=== PATIENT | female | born 1990 | race Caucasian/White ===

== ENCOUNTER → 2020-07-16 15:38 | Outpatient (CLI) | payer MEDICAID, SELFPAY ==
[2020-07-16 17:22] LABS: Absolute Lymphocyte Count 1.94 X10^3/uL (0.83-4.51); Basophil# 0.05 X10^3/uL; Basophil% 0.4 % (0-1); Eosinophil# 0.09 X10^3/uL; Eosinophils% 0.8 % (0-5); Hematocrit 36.8 % (37-47); Hemoglobin 12.5 g/dL (12.0-15.0); Lymphocyte # 1.94 X10^3/ul (0.83-4.51); Lymphocyte % 16.4 % (19-41); Mean Corpuscular Hgb 29.6 pg (27.0-32.0); Mean Platelet Vol. 10.1 fl (6.2-12.0); Monocyte# 0.68 X10^3/uL; Monocyte% 5.7 % (0-10); NRBC Flagged by Analyzer 0 % (0-5); Neutrophil # 9.03 X10^3/uL (2.7-7.7); Neutrophil % 76.4 % (47-70); Platelet Count 302 K/mm3 (150-450); RBC Distribution Width CV 12.5 % (11.6-14.6); RBC Distribution Width SD 39.8 fl (35.1-43.9); Red Blood Count 4.23 M/mm3 (4.2-5.4); White Blood Count 11.8 K/mm3 (4.4-11.0)
[2020-07-16 17:37] LABS: Amphetamine Urine VISTA POSITIVE (<1000 ng/mL); Barbiturate Urine VISTA NEGATIVE (< 200 ng/mL); Benzodiazepine Urine VISTA NEGATIVE (< 200 ng/mL); Cocaine Urine VISTA NEGATIVE (< 300 ng/mL); Ecstacy Urine VISTA NEGATIVE (< 500 ng/mL); Methadone Urine VISTA NEGATIVE (< 300 ng/mL); PCP Urine VISTA NEGATIVE (< 25 ng/mL); THC Urine VISTA POSITIVE (< 50 ng/mL); Vista UDS pH Range 6
[2020-07-17 08:32] LABS: HIV - WCH Non-Reactive (Nonreactive); Hepatitis B Surface Antigen Non-Reactive (Nonreactive); Hepatitis C Antibody Non-Reactive (Nonreactive); Rubella IgG Reactive (Nonreactive); Syphilis Antibodies Non-reactive
[2020-07-19 16:26] LABS: HPV APTIMA, High Risk Negative (Negative)
[2020-07-20 03:06] LABS: Chlamydia By Nucleic Acid AMP Positive (Negative)
[2020-07-20 07:34] LABS: Gonococcus By Nucleic Acid AMP Negative (Negative)
== END ==
PROVIDERS: Visit Provider Student in an Organized Health Care Education/Training Program
DX: Z34.82 Encounter for supervision of other normal pregnancy, second trimester (principal); Z12.4 Encounter for screening for malignant neoplasm of cervix; Z11.3 Encounter for screening for infections with a predominantly sexual mode of transmission
CPT/HCPCS: 36415; 80307; 85025; 86703; 86762; 86780; 86803; 87086; 87088; 87340; 87491; 87591; 87624; 88175; G0145

== ENCOUNTER → 2020-08-30 13:31 | Outpatient (CLI) | payer MEDICAID, SELFPAY ==
[2020-08-30 15:21] LABS: Hematocrit 37.2 % (37-47); Hemoglobin 12.5 g/dL (12.0-15.0); Mean Corp Hgb Conc 33.6 g/dL (32-36); Mean Corpuscular Hgb 29.6 pg (27.0-32.0); Mean Corpuscular Volume 88.2 fL (81-99); Mean Platelet Vol. 9.9 fl (6.2-12.0); Platelet Count 270 K/mm3 (150-450); RBC Distribution Width CV 13.2 % (11.6-14.6); RBC Distribution Width SD 42.3 fl (35.1-43.9); Red Blood Count 4.22 M/mm3 (4.2-5.4); White Blood Count 13.4 K/mm3 (4.4-11.0)
[2020-08-30 16:06] LABS: Glucose Challenge Gest 1H 50g 57 mg/dL (70-140)
== END ==
PROVIDERS: Visit Provider Obstetrics & Gynecology
DX: Z34.82 Encounter for supervision of other normal pregnancy, second trimester (principal)
CPT/HCPCS: 36415; 82950; 85027

== ENCOUNTER → 2020-11-19 | Outpatient (CLI) | payer MEDICAID, SELFPAY | END | disposition home or self-care (01) | LOC: LABSPEC 14:28 | PROVIDERS: Visit Provider Student in an Organized Health Care Education/Training Program | DX: Z36.85 Encounter for antenatal screening for Streptococcus B (principal) | CPT/HCPCS: 87081 ==

== ENCOUNTER → 2020-12-03 | Outpatient (CLI) | payer MEDICAID, SELFPAY | END | disposition home or self-care (01) | LOC: LABSPEC 15:12 | PROVIDERS: Visit Provider Student in an Organized Health Care Education/Training Program | DX: Z03.818 Encounter for observation for suspected exposure to other biological agents ruled out (principal) | CPT/HCPCS: 87635; U0005; U0003 ==

== ENCOUNTER 2020-12-04 04:45 | Inpatient (IN) | payer MEDICAID, SELFPAY ==
[2020-12-04] VITALS (53 sets, daily range): BP systolic 94–187; BP diastolic 57–123; PULSE 59–139; RESP 16–18; TEMP 35.9–37.1; O2SAT 88–100; BMI 25.7
[2020-12-04] MEDS: Lactated Ringers 1,000 ML 50 ML IV (05:15)
[2020-12-04] MEDS: Lactated Ringers 500 ML 999 ML IV (05:20)
[2020-12-04] MEDS: Ondansetron 4 MG/2 ML Vial IV (05:32)
[2020-12-04] MEDS: 0.9% Saline Lock 10 ML Syringe IV ×2 (05:33→09:01)
[2020-12-04 05:39] LABS: Absolute Lymphocyte Count 3.57 X10^3/uL (0.83-4.51); Absolute Neutrophil Count 15.1 X10^3/uL (2.0-7.7); Basophil# 0.07 X10^3/uL; Basophil% 0.3 % (0-1); Eosinophil# 0.12 X10^3/uL; Eosinophils% 0.6 % (0-5); Hematocrit 42.1 % (37-47); Hemoglobin 14.4 g/dL (12.0-15.0); Lymphocyte # 3.57 X10^3/ul (0.83-4.51); Lymphocyte % 17.4 % (19-41); Mean Corp Hgb Conc 34.2 g/dL (32-36); Mean Corpuscular Hgb 28.2 pg (27.0-32.0); Mean Corpuscular Volume 82.5 fL (81-99); Mean Platelet Vol. 9.6 fl (6.2-12.0); Monocyte% 7.3 % (0-10); NRBC Flagged by Analyzer 0 % (0-5); Neutrophil # 15.07 X10^3/uL (2.7-7.7); Neutrophil % 73.7 % (47-70); Platelet Count 286 K/mm3 (150-450); RBC Distribution Width CV 13.4 % (11.6-14.6); RBC Distribution Width SD 39.9 fl (35.1-43.9); White Blood Count 20.5 K/mm3 (4.4-11.0)
--- NOTE | 2020-12-04 05:58 | HP.PCM.OB_ITS ---
HPI - General General Date of Admission: 12/04/20 HPI Narrative HEENA MOROCHO, is a 30 F at 39 6/7 wga who presents with painful contractions. OB PROBLEM LIST: positive amphetamines and THC on tox screen Desires tubal ligation , Needs to sign tubal papers Echogenic intracardiac focus and pyliectasis --> NIPT testing low risk, female Hx of kidney stones and lithotripsy. Also UTI hx. Late PNC Migraine headaches, she reports 1 per week Smokes 1/2 ppd Maternal Data Information KRISTOFER Calculator Estimated Delivery Date Method Current WG Current Estimate 12/11/20 Ultrasound #1 39w 0d Other Estimates 11/05/20 LMP (Uncertain) 44w 1d PFSH PFSH Medical History Kidney stone Positive urine drug screen (~07/2020) Home Medications [id number] [] tab PO DAILY 12/04/20 [History Last Taken 12/03/20] Allergy/AdvReac Type Severity Reaction Status Date / Time No Known Allergies Allergy Verified 12/04/20 05:14 Surgical History H/O lithotripsy Hx of tonsillectomy Social History Smoking Status: Current every day smoker History 3 Elective abortions Hx Para 2 Spontaneous abortions Hx # Term Pregnancies 2 Ectopic pregnancies Hx # Pregnancies Multiple births # of living children 2 Past Pregnancies Del. Date Name GA/Weeks Outcome Route Bth Weight Gen Labor Lgth Anesthesia Del Locatn Provider FOB Unknown Alienna 39 live - full term 8lb2oz Female 24 epi dural Unknown Diamond 39 6lb2oz Female 12 epidural Delivery Date: 11/2006 hypertension, hemorrhage Sobeida Dinero Delivery Date: 02/2013 NICU x 1 week Sobeida Dinero NST FHR Rate Baby A Baseline: 115 Variability:: Moderate Accelerations:: 15 x 15 Decelerations:: Variable NST Reactive:: Yes FHR Category:: Category II Uterine Activity:: 4/10 Vital Signs Vital Signs Vital Signs: Weight Weight: 63.957 kg Body Mass Index (BMI) 25.7 Physical Exam Const alert, oriented x3 and no apparent distress HEENT normocephalic Resp normal respiratory effort, normal air movement and clear to auscultation bilaterally Cardio regular rate and regular rhythm GI normal to inspection, nondistended, normoactive bowel sounds, soft to palpation, non-tender and non-distended Inspection: gravid Narrative: SVE 4.5/60/-3 per YUMI Gilliam Neuro deep tendon reflexes 2+ bilaterally Neuro Narrative: brisk reflexes Labs Labs Labs: Blood Type O POSITIVE Antibody Screen NEGATIVE Hct 42.1 % (37-47) Hgb 14.4 g/dL (12.0-15.0) Syphilis Total Ab Non-reactive Rubella IgG Antibody Reactive (Nonreactive) Hep Bs Antigen Non-Reactive (Nonreactive) Neisseria gonorrhoeae DNA (SHEKHAR) Negative (Negative) HIV 1&2 Antibody Non-Reactive (Nonreactive) Glucose 1 Hr 50 gm 57 mg/dL (70-140) L 07/16/20 Chlamydia - positive 07/16/20 HCV Ab - non reactive Antepartum Flow Sheet Highlights: CM 19 Nov 6 38 141 130/74 39 V 3 60 -1 CM 12 Nov 15 37 138 118/66 - - 37 V 3 60 -2 CM 05 Nov 15 36 138 112/72 - - 36 V 1 60 -3 JM 28 Sep 1 35 132 102/86 - - 35 V JM 14 Sep 2 33 135 104/68 tr + 33 V Sep 16 31 134 118/70 tr ne 32 V Sep 16 31 134 118/70 tr ne 32 V Sep 16 29 129 106/70 tr - 29 V 16 Aug 18 127 104/68 tr 1+ 25 - CM Jul 19 25 122 114/70 tr ne 20 SHORT ANTEPARTUM NOTE(S): Nov 26 Nov 19 Dec 12 Sep feeling well. Wants to discuss tubal. AM Oct Artie Grissom continues, pelvic pressure. AM Oct 15 Sep 27Sep artie grissom 16 Aug Sono Today,Good FM Jul genetic packet, glucola given LONG ANTEPARTUM NOTES: Nov 38/6w Plan for term induction of labor 12/09 pitocin/arom. Membranes stripped. F/u PP. cm Nov Still vomiting 1-2 x in the mornings, once in the evening after eating spaghetti. Still having contractions, but irreguar and < than 6/hr. Good FM. Denies leaking fluid. Denies spotting. She did get pre-registered. Pitocin Induction scheduled for 12/09/20 @ 7 AM. Consent signed. Induction literature given. Paperwork faxed to OB. COVID test done here in the office. kbm Nov Good FM. She has been having runs of ctx's, but states < 6/hr. Denies spotting. Denies leaking fluid. Ph # given to pre-register @ [facility]. kb Nov 37.6w GBS neg. Feeling nauseous in the morning, emesis x1-2 over the past couple days. Denies PISANO, vision changes, chest pain/dyspnea, RUQ pain. Signs/sym ptoms of pr-e reviewed. Declined anti-emetic. F/u 1w. CM Nov H&P taken to OB. tkg Nov Good FM. Declines LARC-- Mirena or Norplant, wants a TUBAL. GBS done today. [facility] Nov 36/6w. Hx of drug use, growth AGA. Desires PPTL, declines larc. GBS done. F/u 1w. CM Oct 35 weeks, ultrasound today for growth with history of drug abuse, AGA vertex. Desires tubal ligation , will sign tubal consent at visit and schedule for tubal at visit. GBS next visit. 14 Oct 33 weeks, with history of drug use will repeat growth ultrasound next visit. GBS next visit. Sep Heena is here for PNV. States she thinks she has as yeast infection again. Having c/o itching and burning. Having good FM. No ctx reported. No edema noted. Urine tr/neg. LSS Sep 30wk, no complaints. Denies drug use. Consider growth u/s at 36wks for hx of drug use, last growth AGA. Sep Heena is here for a PNV/ US at 29 wks. Good FM. No edema present. Reports episode of severe back pain and mild cramping in lower abdomen that took place last Wednesday. States it was a one time occurrence. Occasional artie grissom. No other concerns expressed. MK Sep 29 weeks, repeat ultrasound today for renal pelviectasis. Now within normal limits. Growth AGA. Will consider repeating ultrasound around 36 weeks with history of drug use. CASTRO Aug 25 weeks, 1 hour GTT today. Growth ultrasound today within normal limits. Cardiac foci and renal pelviectasis miffed within normal limits, female. Reviewed with patient. Today minimal renal pelviectasis 4 to 5 mm. We will repeat ultrasound at next visit. Discussed results with patient. CASTRO Jul NOB TELEHEALTH VISIT, 40 MINUTE DURATION. Heena is a 30 year old with an KRISTOFER of , current GA is 20 w 0 d. She was originally scheduled for an in-person NOB visit, but she missed this appointment; when receptionist telephone operator called her she stated that she could do a telehealth visit. Heena resides with her two daughters, ages 7 and 13, from a previous relationship. Past history updated. She reports that the father of this baby's involvement is currently questionable. Heena reports that he has two other children. Delivery at [facility] is planned, she states that she would like to see if she can labor without an epidural, but she is not opposed to having one. Office practice patterns reviewed, and she was given a copy of What to Expect..., and office ed materials. Emergencies/danger signs, how to contact the office during/after hours, round ligament pain, reporting a suspected UTI, and common OTC medications for minor ailments that are approved/not approved for use during reviewed. Heena states that she had been taking Excedrin Migraine for migraine headaches, advised Tylenol only. She will call if her migraines continue. She states a long history of migraine headaches. She also reports a history of UTI's and kidney stones, and she had Lithotripsy at age 17. Heena takes an OTC vitamin that contains DHA, and that she tolerates this well. She reports that she has been feeling well, and is feeling some FM. She states that she continues to smoke, an has decreased to less than 1/2 ppd; ATQ, and discussed risks of smoking to self/fetus/baby. She reports that she continues to smoke marijuana, advised to stop.; Heena states that she discussed this with the doctor at her PNV yesterday. She denies use of other illicit drugs, and denies use of ETOH. NIPT drawn yesterday, and she declines carrier screening. She states that she filled out her Depression Screening yesterday, along with her EPDS. She reports that she is trying to find more information on FOB's family history, and will advise office staff of she has anything to add. Heena denies a history of depression or anxiety, or ever receiving any treatment for same. Encouraged regular physical activity, such as walking, for 30 minutes, 5 x/week. She states that she has been sedentary. Heena states that she eats a pretty good diet, and works to drink plenty of water. Reviewed water/dietary/caloric needs, including recommended weight gain, limiting empty calories, limiting caffeine to one cup a day, and food safety. Lifting restrictions for discussed. Heena states that she understands all information provided during NOB visit, and that she has no questions following same. AW Jul Heena is here for PNV following US. States she is feeling well and having good FM. Glucola and instructions given for next visit. Instucted to do prior to 28 week sushil. Voiced understanding. Genetic packet given today also. Urine tr/neg. LSS Jul Materni T drawn today. Aug 03w, KRISTOFER FINAL 12/11/20 by 03/08w US. Hx of Drug use - utox pos amphetamines & marijuana at last visit. Late PNC. Anatomy US today showed pyliectasis and left ventricular intracardiac echogenic focus. Discussed soft markers of Tri21. Would like NIPT testing today. Drawn. Plan for 28w growth. F/u 4w. CM Jul Heena is a 30 yr old Gr3 P2 here with a girlfriend for Missed Menses. She unsure of LMP. Reports having 2 bleeds in January and maybe 1 the first week in Feb, but she is not sure. States prior to Jan, she was having monthly periods. Positive home test on 04/06/20. Reports feeling FM for several weeks. This is with a new FOB; she is unsure if he will be involved. States she is taking a PNV. Hx x 2 prior. She has a 13 yr old and a 7 yrs old -- both daughters. At one point reported no problems with these 2 pregnancies, then later stated had PP hemorrhage after the 1st. Difficult to get information from her as she was a poor historian and hesitated w/answers to every question. Med Hx she was given was blank except for stating she was and smoked. Hx Kidney Stones, subsequent Lithotripsy. Smokes 1 PPD cigarettes and marijuana. To discuss further w/Dr. Clinton Reports last pap > 5 yrs ago. Denies Hx abnormals. Denies Hx STD's. informational materials given. Advised no use of NSAIDS. kbm Assessment & Plan (1) : QUALIFIERS: Weeks of gestation: 39 weeks Qualified Code(s): Z3A.39 - 39 weeks gestation of PLAN: Admit in labor Epidural per patient request Preeclampsia labs sent given elevated BPs, pt asymptomatic Repeat GC/CT ordered Covid testing neg (2) Positive urine drug screen: PLAN: Repeat utox positive Case management consultationy
[2020-12-04] MEDS: fentaNYL-bupivacaine (epidural) 100 ML BAG EPIDURAL (06:26)
[2020-12-04 06:31] LABS: Amphetamine Urine VISTA NEGATIVE (<1000 ng/mL); Barbiturate Urine VISTA NEGATIVE (< 200 ng/mL); Benzodiazepine Urine VISTA NEGATIVE (< 200 ng/mL); Cocaine Urine VISTA NEGATIVE (< 300 ng/mL); Ecstacy Urine VISTA NEGATIVE (< 500 ng/mL); Methadone Urine VISTA NEGATIVE (< 300 ng/mL); PCP Urine VISTA NEGATIVE (< 25 ng/mL); THC Urine VISTA POSITIVE (< 50 ng/mL); Vista UDS pH Range 6
[2020-12-04] MEDS: Oxytocin 30 units/NS 500 ml 30 UNITS/500 ML IV.SOLN 334 UNITS IV (06:37)
[2020-12-04 06:52] LABS: Protein, Urine (Random) 23.7 mg/dL (<11.9); Protein:Creat Ratio 311 mg/g CRE (0-200)
[2020-12-04 06:55] LABS: ALB/GLOB Ratio 0.5 RATIO (0.9-2.4); AST(SGOT) 10 U/L (15-37); Alanine Aminotransfer ALT/SGPT 15 U/L (13-56); Albumin, Serum 2.4 g/dL (3.2-5.0); Alkaline Phosphatase 233 U/L (45-117); Anion Gap 11 (5-15); BUN 11 mg/dL (7-18); BUN/Creat Ratio 21.9 RATIO (10-20); Calcium,Total 8.3 mg/dL (8.5-10.1); Chloride 105 mmol/L (98-107); EST Glomerular Filtration Rate 153 mL/min (>60); Est Glom Filt Rate - Afr Amer 185 mL/min (>60); Estimated Creatinine Clearance 130.12 ml/min; Globulin 4.4 g/dL (2.2-4.2); Glucose 93 mg/dL (74-106); LDH 209 U/L (84-246); Potassium 3.9 mmol/L (3.5-5.1); Protein, Total 6.8 g/dL (6.4-8.2); Sodium Level 136 mmol/L (136-145); Uric Acid 3.3 mg/dL (2.6-6.0)
--- NOTE | 2020-12-04 07:53 | EX.PCM.OBRPT ---
Assessment & Plan (1) (spontaneous vaginal delivery): Maternal Data Information KRISTOFER Calculator Estimated Delivery Date Method Current WG Current Estimate 12/11/20 Ultrasound #1 39w 0d Other Estimates 11/05/20 LMP (Uncertain) 44w 1d Vaginal Delivery Maternal Presentation Maternal Presentation: Active Labor Operative Information Date of Procedure: 12/04/20 Pre-Operative Diagnosis: 1. 39 weeks gestation Post-Operative Diagnosis: 1. 39 weeks gestation Surgery / Procedure Performed: Spontaneous Vaginal Delivery Type of Anesthesia: Epidural Anesthesiologist: Kaylyn Recinos Estimated Blood Loss: 250 ml Findings Description of Procedure: Patient pushed to deliver a [female] . mouth and nares were bulb suctioned. The was placed on the maternal abdomen and further attended by nursery personnel. The cord was doubly clamped and cut at approximately 3 minutes of life. The placenta delivered spontaneously and appeared intact on inspection. Sponge and needle counts were correct x2. Presentation: Vertex Amniotic Membrane Rupture Type: Spontaneous Amniotic Fluid Description: Clear Placental Delivery Description: Spontaneous Placenta Disposition: [facility] Cord Vessel Description: 3 Vessels Cord Entanglement: - (around leg) Nuchal Cord Compression: Without compression A Gender: Female (1 minute): 7 (5 minute): 9 Delayed Cord Clamping: Yes Post Vaginal Delivery Medications Given After Delivery: IV Pitocin Episiotomy Description: None Laceration: None Complication Complications: None
--- NOTE | 2020-12-04 08:20 | NURSING ---
Patient reports to this RN that she smoked weed throughout . Also reports using Vicodin throughout . Reports yesterday as most recent use. Denies fentanyl or heroin use, but states that anything could be in pills. Patient reports that she used Hamida and Meth during the first trimester when she didn't know she was .
[2020-12-04] MEDS: Ibuprofen 600 MG Tablet PO ×3 (08:25→22:28)
[2020-12-04 09:56] LABS: Chlamydia Trachomatis by PCR Negative (Negative); Probe Check PASS
[2020-12-04 09:58] LABS: Neisserai gonorrhoeae by PCR Positive (Negative)
--- NOTE | 2020-12-04 11:03 | NURSING ---
Per Dr. Coats, tubal will not be done inpatient. Patient can discuss the possibility of surgery with provider at 6 weeks .
[2020-12-04] MEDS: Doxycycline 100 MG CAPSULE PO ×2 (12:05→22:27)
[2020-12-04] MEDS: Ceftriaxone 500 MG Vial 250 MG IM (12:06)
[2020-12-04 13:07] LABS: Syphilis Antibodies Non-reactive
--- NOTE | 2020-12-04 13:13 | NURSING ---
Epidural catheter removed. Blue tip intact.
[2020-12-04 13:38] LABS: HIV - WCH Non-Reactive (Nonreactive); Hepatitis B Surface Antigen Non-Reactive (Nonreactive); Hepatitis C Antibody Non-Reactive (Nonreactive)
[2020-12-04] MEDS: Acetaminophen 500 MG Tablet 1000 MG PO ×2 (16:03→22:27)
[2020-12-05 03:40] VITALS: BP 114/93; PULSE 73; RESP 16; TEMP 36.8; O2SAT 98
[2020-12-05] MEDS: Acetaminophen 500 MG Tablet 1000 MG PO ×2 (04:27→17:09)
[2020-12-05] MEDS: Ibuprofen 600 MG Tablet PO ×2 (04:28→11:07)
[2020-12-05 07:30] VITALS: BP 106/67; PULSE 77; RESP 14; TEMP 36.6; O2SAT 97
--- NOTE | 2020-12-05 08:31 | PCM.PN.OB ---
Subjective Subjective No overnight complaints. Pain well controlled. Objective Data Objective Data Vital Signs: Vital Signs Temp Pulse Resp BP Pulse Ox 97.8 F 77 14 106/67 97 12/05/20 07:30 12/05/20 07:30 12/05/20 07:30 12/05/20 07:30 12/05/20 07:30 Oxygen Delivery Method Room Air Weight: 141 lb Body Mass Index (BMI) 25.7 Intake & Output: Intake and Output for Last 24 Hours 12/03/20 12/04/20 12/05/20 23:59 23:59 23:59 Intake Total 1140.84 / 1140.84 Output Total 300 / 300 Balance 840.84 / 840.84 Lab / Micro Data Result Diagrams: 12/04/20 05:35 12/04/20 05:45 Labs: Laboratory Results - last 24 hr 12/04/20 05:15: Chlam trachomat DNA PCR Negative, N.gonorrhoeae DNA (PCR) Positive H 12/04/20 11:50: Syphilis Total Ab Non-reactive 12/04/20 11:50: Hep Bs Antigen Non-Reactive, Hepatitis C Antibody Non-Reactive, HIV 1&2 Antibody Non-Reactive Physical Exam Const alert, oriented x3, no apparent distress, average body habitus, healthy appearing and well nourished HEENT normocephalic and moist oral mucous membranes Head and Scalp: atraumatic Face and Sinus: normal facial exam Eyes PERRL Neck full ROM Resp normal respiratory effort, no retractions and no use of accessory muscles Extremity normal to inspection, full ROM and no clubbing, cyanosis or edema Psych mental status grossly normal, affect normal, speech normal and activity/motor behavior normal Assessment & Plan (1) (spontaneous vaginal delivery): PLAN: day 1. Formula feeding. Baby being watched for mother with opioid use for 5 days. Likely hotel status tomorrow
[2020-12-05] MEDS: Doxycycline 100 MG CAPSULE PO ×2 (11:07→22:14)
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
[2020-12-05 13:51] VITALS: BP 103/67; PULSE 65; RESP 14; TEMP 37.3; O2SAT 99
--- NOTE | 2020-12-05 16:30 | CASEMGMT ---
Social Work Labor and Delivery Referral to [facility] ([facility]) and spoke with Miriam Bruce in the intake department. Referral due to substance exposed in utero. Reported positive drugs screens for both mom and baby. Brief maternal and histories provided. Referral will be screened in for investigation. Anticipate [facility] to make contact with mother of baby on 12.06.2020. Plan: Social work to follow and assist as needed. Will follow up with MOB on 12.06.2020 for provision of some resources for home going. Will collaborate with children services as indicated. Monitor for meconium drug screen results. -Karrie Rivero, SHERRILL-S, PROFESSOR OF PHYSICAL EDUCATION
[2020-12-05 20:35] VITALS: BP 99/75; PULSE 65; RESP 18; TEMP 36.7; O2SAT 99
[2020-12-06 01:17] VITALS: BP 119/74; PULSE 70; RESP 16; TEMP 36.6; O2SAT 97
--- NOTE | 2020-12-06 08:26 | PCM.DC.BLA ---
Discharge Summary Date of Admission: 12/04/20 Date of Discharge: 12/06/20 Summary: Patient arrived on 12/04/2020 in labor. Spontaneous vaginal delivery. Patient with recent opioid use, AB to be watched by pediatricians for 5 days total. Patient discharge to [facility] status on 12/06/2020 Physical Exam Const alert, oriented x3, no apparent distress, average body habitus, no limitations and healthy appearing HEENT normocephalic Neck full ROM Lymph Lymphatic: no lymphadenopathy noted Resp normal respiratory effort, normal air movement, no retractions and no use of accessory muscles Extremity normal to inspection and full ROM Psych mental status grossly normal, thought process normal, cooperative, affect normal and speech normal Meaningful Use Info Meaningful Use Diagnoses (Choose all that apply): None applicable Discharge Plan Admission Admit Date/Time: 12/04/20 04:45 Primary Reason for Your Visit: labor Attending Provider: Sobeida Freeman Discharge Orders/Prescriptions Prescriptions: No Action 1 mg Tablet PO DAILY RF: 0 Disposition Disposition (needs filled in before D/C Order can be placed): Home, Self Care
--- NOTE | 2020-12-06 08:28 | PCM.PN.OB ---
Subjective Subjective No overnight complaints. Pain well controlled. Objective Data Objective Data Vital Signs: Vital Signs Temp Pulse Resp BP Pulse Ox 97.8 F 70 16 119/74 97 12/06/20 01:17 12/06/20 01:17 12/06/20 01:17 12/06/20 01:17 12/06/20 01:17 Oxygen Delivery Method Room Air Weight: 141 lb Body Mass Index (BMI) 25.7 Intake & Output: Intake and Output for Last 24 Hours 12/04/20 12/05/20 12/06/20 23:59 23:59 23:59 Intake Total 1140.84 / 1140.84 Output Total 300 / 300 Balance 840.84 / 840.84 Lab / Micro Data Result Diagrams: 12/04/20 05:35 12/04/20 05:45 Physical Exam Const alert, oriented x3, no apparent distress, average body habitus, healthy appearing and well nourished HEENT normocephalic and moist oral mucous membranes Head and Scalp: atraumatic Face and Sinus: normal facial exam Eyes PERRL Neck full ROM Resp normal respiratory effort, no retractions and no use of accessory muscles Extremity normal to inspection, full ROM and no clubbing, cyanosis or edema Psych mental status grossly normal, affect normal, speech normal and activity/motor behavior normal Assessment & Plan (1) (spontaneous vaginal delivery): PLAN: day 2. Formula feeding. Opioid use, [facility] with baby being watched by milk drying machine operator for opioid withdrawal for 5 days
[2020-12-06 08:30] VITALS: BP 128/77; PULSE 67; RESP 16; TEMP 36.7
[2020-12-06] MEDS: Acetaminophen 500 MG Tablet 1000 MG PO ×2 (09:12→15:27)
[2020-12-06] MEDS: Azithromycin 250 MG Tablet 1000 MG PO (13:01)
[2020-12-06] MEDS: Ceftriaxone 500 MG Vial 250 MG IM (13:01)
[2020-12-06 14:09] VITALS: BP 126/74; PULSE 70; RESP 16; TEMP 36.8
--- NOTE | 2020-12-17 15:12 | CASEMGMT ---
Social Work Labor and Delivery Infant's meconium drug screen is back and positive for marijuana. Called transfer and line up worker, Jaime Morris ([phone], extension [phone], at [facility] and left message. No other services requested or indicated. [facility] is following this family in the community from of delivery admission. -MK Dale, BIAS CUTTER HELPER
== END 2020-12-06 15:28 | disposition home or self-care (01) | DRG 560 ==
PROVIDERS: Obstetrics & Gynecology; Admitting Provider Obstetrics & Gynecology; Referring Provider Obstetrics & Gynecology; Visit Provider Obstetrics & Gynecology
DX: O76 Abnormality in fetal heart rate and rhythm complicating labor and delivery (principal); O16.4 Unspecified maternal hypertension, complicating childbirth; O42.92 Full-term premature rupture of membranes, unspecified as to length of time between rupture and onset of labor; O69.82X0 Labor and delivery complicated by other cord entanglement, without compression, not applicable or unspecified; O99.324 Drug use complicating childbirth; Z37.0 Single live birth; F15.90 Other stimulant use, unspecified, uncomplicated; F11.90 Opioid use, unspecified, uncomplicated; F12.90 Cannabis use, unspecified, uncomplicated; O99.334 Smoking (tobacco) complicating childbirth; F17.210 Nicotine dependence, cigarettes, uncomplicated; Z3A.39 39 weeks gestation of pregnancy; Z03.818 Encounter for observation for suspected exposure to other biological agents ruled out; Z87.59 Personal history of other complications of pregnancy, childbirth and the puerperium
CPT/HCPCS: 59025; 59050; 80053; 80307; 82570; 83615; 84156; 84550; 85025; 86703; 86780; 86803; 86850; 86900; 86901; 87340; 87491; 87591; 87635; 99218; J7120; U0005; A4216; G0378; J2405; U0003

== ENCOUNTER → 2021-01-13 | Outpatient (CLI) | payer MEDICAID, SELFPAY ==
[2021-01-15 21:07] LABS: Chlamydia By Nucleic Acid AMP Negative (Negative)
[2021-01-16 14:17] LABS: Gonococcus By Nucleic Acid AMP Negative (Negative)
== END | disposition home or self-care (01) ==
LOC: LABSPEC 15:47
PROVIDERS: Visit Provider Student in an Organized Health Care Education/Training Program
DX: Z11.3 Encounter for screening for infections with a predominantly sexual mode of transmission (principal)
CPT/HCPCS: 87491; 87591

== ENCOUNTER 2021-02-18 11:57 | Outpatient (CLI) | payer MEDICAID, SELFPAY | END 2021-02-18 23:59 | disposition short-term general hospital (02) | LOC: LABSPEC 12:02 | PROVIDERS: Visit Provider Student in an Organized Health Care Education/Training Program | DX: Z20.822 Contact with and (suspected) exposure to COVID-19 (principal) | CPT/HCPCS: 87635; U0003; U0005 ==

== ENCOUNTER 2021-02-20 06:00 | Day surgery (SDC) | payer MEDICAID, SELFPAY ==
[2021-02-19 17:08] LABS: Hematocrit 40.2 % (37-47); Hemoglobin 12.9 g/dL (12.0-15.0); Mean Corp Hgb Conc 32.1 g/dL (32-36); Mean Corpuscular Volume 84.3 fL (81-99); Mean Platelet Vol. 10.2 fl (6.2-12.0); Platelet Count 332 K/mm3 (150-450); RBC Distribution Width CV 13.3 % (11.6-14.6); RBC Distribution Width SD 41.4 fl (35.1-43.9); Red Blood Count 4.77 M/mm3 (4.2-5.4)
[2021-02-20 06:45] VITALS: BP 129/90; PULSE 75; RESP 16; TEMP 36.6; O2SAT 100; BMI 23.8
[2021-02-20 06:48] LABS: Internal QC Validated? YES +Cl - CLEAR BKGD; Pregnancy, Urine Negative Negative
[2021-02-20] MEDS: Lactated Ringers 1,000 ML 125 ML IV (06:48)
--- NOTE | 2021-02-20 07:10 | HP.PCM.OB_ITS ---
History and Physical Date of Admission: 02/20/21 HISTORY OF PRESENT ILLNESS: On 02/18/2021, Heena Singh, a 30 year old female 3 0 0 0 3, presented for bilateral salpingectomy for desired tubal sterilization. MEDICAL HISTORY: Denies ALLERGIES: No Known Allergies MEDICATIONS HISTORY: None SURGICAL HISTORY: 1. Lithotripsy age 17 2. T and A, age 13 MENSTRUAL HISTORY: LMP Known?- Definite Amount/Duration - 6 days, Regularity - Regular, LMP - 01/03/21, Age Onset Menarche - 14 PAST PREGNANCIES: Total Pregnancies - 3; Full Term Pregnancies - 3; Premature - 0; Abortions, Induced - 0; Abortions, Spontaneous - 0; Ectopics - 0; Multiple Births - 0; Living Children - 3 FAMILY HISTORY: Denies. No history of issues with anesthesia SOCIAL HISTORY: Alcohol Use - denies drinking Smoking - 1/2 pack/day--advised to quit Drug Use - Denies current drug use. on probation with routine drug testing REVIEW OF SYSTEMS: GENERAL - Denies fever, or chills SKIN - Denies skin changes EYES - Denies visual changes EARS - Denies difficulty hearing NOSE - Denies nasal congestion or bleeding MOUTH - Denies sore throat or difficulty swallowing NECK - Denies pain or swelling RESPIRATORY - Denies shortness of breath or wheezing CARDIOVASCULAR - Denies palpitations or chest pain GASTROINTESTINAL - Denies nausea, vomiting, diarrhea, constipation GENITOURINARY - Kidney stone issues, lithotripsy MUSCULOSKELETAL - Denies joint or muscle pain NEUROLOGICAL - Denies localized numbness or weakness PSYCHIATRIC - Denies depression or anxiety ENDOCRINE - Denies heat or cold intolerance, weight loss or gain HEMATO-IMMUNOLOGIC - Denies excessive bleeding with cuts BP- 108/62 Sitting, Right arm, regular cuff Weight- 127.0 lbs Height- 62.75 inch BMI:22.67 CONSTITUTIONAL - NAD, well nourished, and well developed SKIN - No rash, lesions, or ulcers HEENT - Normocephalic, PERRLA, EOMI NECK - No nodes, no nuchal rigidity and thyroid normal size and texture LYMPH NODES - Palpation of lymph nodes in neck and groins within normal limits LUNGS - CTA x2 without wheezes, crackles or rales CARDIAC - Regular rate and rhythm without rubs, murmurs, or gallops ABDOMEN - Without hepatosplenomegaly, distention, masses, rebound, or guarding; normal bowel sounds; no hernias EXTREMITIES - No edema or calf tenderness NEUROLOGICAL - Cranial nerves II-XII grossly intact PSYCHIATRIC - A and O to time, place, person, mood and affect ASSESSMENT/PLAN: Desires permanent sterilization. Patient is confident she has comple anna childbearing. R/B/A discussed. Pt aware of risks of surgery,risks of regret, VTE, bleeding to the point of transfusion, injury to surrounding tissue (bowel/bladder/large vessel), ICU admission.
--- NOTE | 2021-02-20 07:13 | PCM.OPRPT ---
Report of Operation Date of Procedure: 02/20/21 Pre-Operative Diagnosis: Desires Permanent Sterilization Post-Operative Diagnosis: Desires Permanent Sterilization Surgery/Procedure Performed:: Laparoscopic Bilateral Salpingectomy Description of Surgical Findings:: Carbuncle left mons. Normal external genitalia otherwise. Minimal uterine descensus. Normal-appearing ovaries, uterus. Paratubal cysts noted on fallopian tubes. No evidence of adhesions or Andrea-Rishabh Gavino. Type of Anesthesia: General Specimen's removed: Bilateral fallopian tubes Estimated Blood Loss (mL): 10 cc Fluids Replaced: 600 cc Description of Procedure: Indications/risk/benefits: 30-year-old female who desires permanent sterilization. Plan for bilateral laparoscopic salpingectomy. Risk, benefits, alternatives were discussed with the patient. Risks include but are not limited to: Risk of regret, risk of injury to surrounding tissue including bowel/bladder/major abdominal vessels, VTE, ICU admission, infection. Patient aware if she were to become to notify provider immediately due to risk of ectopic , however low due to bilateral salpingectomy. Procedure: Patient taken to the operating room and placed under general anesthesia. Patient placed in the dorsal lithotomy position and prepped and draped in the usual sterile fashion. Left mons carbuncle noted cleaned with prep and covered with separate draping, located far away from surgical site. Geronimo catheter placed. Weighted speculum placed in the posterior vagina, Orellana retractor used to visualize the cervix. Anterior lip of the cervix grasped with ring forceps. Cervix gradually dilated. Sargis manipulator placed. Gloves changed and attention turned to the anterior abdominal wall. 5 mm infraumbilical incision made with scalpel and trocar placed under direct visualization. Abdomen inspected with findings above. Left lower quadrant incision made with scalpel and trocar placed under direct visualization, 5 mm. 8 mm trocar placed under direct visualization in the right lower quadrant. Left fallopian tube grasped and removed using the LigaSure device with coagulation and cut. Tube removed through trocar. Right fallopian tube grasped at the distal end and removed using LigaSure in a similar manner. Tube removed through trocar. Mesosalpinx hemostatic. Insufflation stopped, trochars removed. Skin closed with subcuticular stitch and skin glue. Started manipulator removed. Cervix hemostatic. At the end of the procedure all needle, lap, sponge counts were correct. Urine output: 50 cc Complications None
--- NOTE | 2021-02-20 07:14 | PCM.DC ---
Discharge Instructions Diet Discharge Diet: No restrictions Activity Discharge Activity: Return to Normal Activity and May Shower May resume sexual activity in: 1-2 weeks Weight Bearing Status: Weight bearing as tolerated Lifting Restrictions: No greater than 25 pounds Dressing / Incision Call your doctor if your incision/area has: Continuous Slow Oozing, Increased Redness, Foul Smelling Discharge and Swelling at the incision site Call your doctor if you observe: Fever of 101 or Higher, Change in Color, Inability to urinate, Using more than 1 pad per hour, Shortness of breath, Dizziness, Swelling in the ankles, Chest pain and Calf discomfort Cleanse incision/area with: Soap & Water Follow Up Care Please Follow Up With: Elin Maxwell DO When: 2-week post operative visit Test Results: Test results from this visit will be discussed in further detail at your follow-up appointment, if applicable. Discharge Plan Admission Primary Reason for Your Visit: Bilateral salpingectomy Attending Provider: Elin Maxwell Primary Care Provider: Care Physician,Cheyanne Primary Discharge Orders/Prescriptions Prescriptions: New oxycodone 5 mg tablet 5 mg PO Q6H PRN (Reason: pain (scale score 7-10)) 1 Days Qty: 4 RF: 0 sulfamethoxazole-trimethoprim [Bactrim DS] 800-160 mg tablet 1 tab PO BID Qty: 10 RF: 0 Referrals / Follow Up: Care Physician,No Primary [Primary Care Provider] - Disposition Disposition (needs filled in before D/C Order can be placed): Home, Self Care
--- NOTE | 2021-02-20 07:30 | FALS_PTH ---
PATIENT: DEJAN MOROCHO [place] [facility] [id number] AGE/SX: 30/F ROOM: RE02/20/[address]: Dr. Elin Maxwell, : 1990 BED: DIS: 02/20/2021 SPEC #: [id number] RECD: 02/20/21 10:08 STATUS: FARIBA RECordelia #: [id number] GENA: 02/20/21 07:[address]: Elin Maxwell DEPT: SURGICAL PATHOLOGY RECD BY: Liz Zaidi ENTERED: 02/20/21 13:31 SP TYPE: FALL TUBES OTHR DR: No Primary Care Phys Tissues: Fallopian tube Procedures: Surgery Specimen Level II HEADER OPERATION: Laparoscopic salpingectomy PRE-OP DIAGNOSIS: Elective sterilization TISSUE SUBMITTED: Bilateral fallopian tubes MICROSCOPIC DIAGNOSIS Bilateral fallopian tubes, salpingectomy: Bilateral fallopian tubes, no pathologic diagnosis. BREANA:eve 02/21/2021 MICROSCOPIC DESCRIPTION Slides are reviewed. GROSS DESCRIPTION Received in fixative is one container labeled with the patient's name and designated bilateral fallopian tubes. The specimen consists of two fallopian tubes with an average length of 5.5 cm and has an average diameter of 0.6 cm. Both fallopian tubes have normal fimbriated ends. No mass lesions are identified. Computer Publisher sections are submitted in two cassettes as follows: 1 - one fallopian tube, 2??the other fallopian tube. / AM:eve 02/20/21 TC:4 CPT: 05617 x2
[2021-02-20 08:16] VITALS: BP 124/83; BP 129/90; PULSE 82; RESP 20; TEMP 36.1; O2SAT 97
[2021-02-20 08:30] VITALS: BP 124/82; BP 129/90; PULSE 100; RESP 20; O2SAT 98
[2021-02-20 08:35] VITALS: BP 123/76; BP 129/90; PULSE 96; RESP 20; TEMP 35.8; O2SAT 98
--- NOTE | 2021-02-20 08:44 | SUR.PHASEI ---
PATIENT ORIENTED X3, BUT IS STILL VERY TEARFUL ASKING FOR HER MOMMY. SHE IS STABLE SO I AM GOING TO TAKE HER BACK TO HER ROOM.
[2021-02-20 09:25] VITALS: BP 126/83; BP 129/90; PULSE 70; RESP 16; TEMP 36.1; O2SAT 100
== END 2021-02-20 23:59 | disposition home or self-care (01) ==
LOC: SDC 06:01 → AC 06:03
PROVIDERS: Anesthesiology; Referring Provider Student in an Organized Health Care Education/Training Program; Visit Provider Student in an Organized Health Care Education/Training Program
PROC: (CPT 58661; principal; 2021-02-20 07:15)
DX: Z30.2 Encounter for sterilization (principal); N83.8 Other noninflammatory disorders of ovary, fallopian tube and broad ligament; F17.200 Nicotine dependence, unspecified, uncomplicated
CPT/HCPCS: 58661; 00840; 36415; 81025; 85027; 86850; 86900; 86901; 88302; J7120; J2405

== ENCOUNTER 2021-08-01 16:31 | Emergency (ER) | payer MEDICAID, SELFPAY ==
[2021-08-01 16:33] VITALS: BP 101/67; PULSE 87; RESP 16; TEMP 36.9; O2SAT 100; BMI 21.9
[2021-08-01 16:48] LABS: Mucous, Urine 0 SEEN /hpf (<or=2+)
[2021-08-01 16:51] LABS: Glucose, Dipstick Normal (Normal); Ketone-Dipstick Negative (Negative); Leukocyte Esterase-Dipstick 500 /ul (Negative); Nitrite-Dipstick Negative (Negative); Occult Blood-Urine 150 /ul (Negative); Protein-Dipstick 100 mg/dl (Negative); Urine Bilirubin Dipstick Negative (Negative); Urine Urobilinogen Normal (Normal)
[2021-08-01 17:28] LABS: Red Blood Cells-Urine 5-10 SEEN /hpf (0-5); White Blood Cells 25-50 SEEN /hpf (0-5)
[2021-08-01 17:29] LABS: Bacteria 1+ /hpf (None Seen); Trichomonas 0-5 SEEN /hpf (None Seen)
[2021-08-01 17:30] LABS: Squamous Epithelial Cells - UA 5-10 SEEN /hpf (5-10)
[2021-08-01 17:31] LABS: Color, Urine Yellow (Yellow); Urine Clarity Sl Cloudy (Clear)
--- NOTE | 2021-08-01 17:42 | EDS_ITS ---
HPI History of Present Illness Chief Complaint: Back Informant: patient Onset/Context/Timing Onset: Days Context: Gradual Onset Timing: Continuous Quality: Sharp, Dull and Aching Location: Lumbar Current Severity: Mild Maximum Severity: Mild Worsened by: improves with Nothing Relieved by: Nothing Associated Symptoms Associated Symptoms: Fever; Negative for Numbness, Tingling, Radiation to Right Leg, Radiation to Left Leg, Abdominal Pain, Dysuria, Unable to Ambulate, Unable to Transfer, Urinary Incontinence, Constipation or Fecal Incontinence Narrative Narrative: 31-year-old female history of kidney stones migraine headaches. States she awoke Wednesday morning with lower back pain. Denies any dysuria. States the mid to lower back. Wednesday started having a fever of 103. No nausea or vomiting or diarrhea. No cough or shortness of breath. Mild headache. No neck pain. Denies any trauma. No prior back surgery. No abdominal pain. Prior similar symptoms: No Recent Illness/Hospitalization: No PFSH PFSH Medical History CPAP (continuous positive airway pressure) dependence Kidney stone Migraine Migraine headache Positive urine drug screen (~07/2020) Sleep apnea Smoker Wears glasses Home Medications cephalexin 500 mg capsule 500 mg PO Q6 #40 caps 08/01/21 [Rx Last Taken Unknown] Allergy/AdvReac Type Severity Reaction Status Date / Time ondansetron [From Zofran] Allergy Itching Verified 08/01/21 16:32 valproic acid Allergy Other Verified 08/01/21 16:32 Surgical History H/O lithotripsy Hx of tonsillectomy Social History Smoking Status: Current every day smoker tobacco type: cigarettes ROS ROS ED ROS Narrative Fever and back pain. Headache. Review of Systems ROS Unobtainable: Denies due to encephalopathy Constitutional Constitutional ED: Reports fever(s); Denies chills Eyes Eyes: Denies blurry vision ENT ENT ED: Denies ear pain Cardiovascular Cardiovascular: Denies chest pain Respiratory/Chest Respiratory/Chest: Denies dyspnea or dyspnea on exertion Gastrointestinal Gastrointestinal: Denies abdominal pain, constipation, diarrhea, melena, nausea or vomiting Genitourinary Genitourinary ED: Denies dysuria or hematuria Musculoskeletal Musculoskeletal: Reports back pain and myalgias; Denies arthralgias Integumentary Denies abscess Neurologic Neurologic: Reports headache(s) Psychiatric Psychiatric: Denies anxiety Endocrine Endocrinology: Denies cold intolerance Hematologic/Lymphatic Hematologic/Lymphatic: Denies easy bleeding Allergic/Immunologic Allergic/Immunologic ED: Denies mouth swelling EXAM Physical Exam Narrative Exam Narrative: 31-year-old female no acute distress. Vital signs stable afebrile. Temperature 98.5. Pulse ox on percent room air no signs hypoxia. H EENT exam unremarkable atraumatic. Neck nontender. No meningismus. Able to touch chin to chest. Normal flexion. No meningismus. Lungs clear. Heart regular rhythm no murmur rate about 85. Chest were nontender. Abdomen soft nontender. Complains of lower back pain. Not reproducible. No signs of trauma. No redness or warmth. No spine tenderness. No CVA tenderness. Moving all 4 extremities. 5/5 tape controlled machine stitcher strength. Dorsi plantarflexion intact. No cauda equina or saddle anesthesia. Neurologic exam normal. Const Vital Signs: 08/01/21 16:33 08/01/21 17:48 08/01/21 17:53 Temperature 98.5 F 98.5 F 100 F H Temperature Source Temporal Temporal Oral Pulse Rate 87 87 Respiratory Rate 16 16 Blood Pressure 101/67 101/67 Blood Pressure Mean 78 Pulse Ox 100 100 Oxygen Delivery Method Room Air Room Air Positive well nourished and well developed; Negative for obese, cachectic, contractures or unkempt General Appearance ED: well developed; Negative for unkempt, cachectic, contractures or pallor Nutritional Appearance: Negative for cachectic or obese HEENT Reports TM's clear and moist mucous membranes; Denies dry mucous membranes Negative for trauma Tympanic Membrane ED: Yes TM's clear Mouth ED: No dry mucous membranes Mouth: No dry mucous membranes Eyes PERRL and EOMs intact bilaterally General Eye ED: Negative for pale conjunctiva or scleral icterus Neck no lymphadenopathy, supple and no JVD General: Negative for tenderness Resp normal respiratory effort and clear to auscultation bilaterally Effort and Inspection: Negative for pain with movement Auscultation: Negative for rales, rhonchi or wheezes Cardio regular rate, regular rhythm, S1 normal heart sound and S2 normal heart sound GI normal to inspection, nondistended, normoactive bowel sounds, soft to palpation, non-tender, non-distended and no masses Back/Spine normal to inspection and no thoracic nor lumbar tenderness General Back: Negative for CVA tenderness Cervical Spine: Negative for cervical spine tenderness Extremity normal to inspection and no clubbing, cyanosis or edema Neuro oriented x3 Sensorium / Orientation: alert; Negative for confused, lethargic or stuporous Motor Exam: strength 5/5 throughout Psych Appearance: Negative for unkempt Skin no rashes or lesions noted and no wounds General Skin Exam: Negative for jaundice or pallor Trauma: Negative for abrasion Wounds: Negative for wounds noted MDM MDM MDM Narrative Medical decision making narrative: Young female with fever and back pain. May be secondary to pyelonephritis. She has a normal neurologic exam. Does not appear to be meningitis. She has had no prior back surgeries or procedures. I do not think this is discitis or abscess. She has normal motor strength and sensation. Labs are being obtained. She will be treated with IV fluids and IV Toradol. Patient doing well on repeat exam at 8 PM. Her gonorrhea test did come back positive. She will be given a dose of Rocephin IV for her UTI which I think clinically is pyelonephritis. She also be given a gram of Zithromax. History gonorrhea and chlamydia. And she will be discharged home on Keflex 4 times a day for 10 days for the suspected pyelonephritis. Fluids and rest. She does not have a primary care physician she will be referred to [facility] for follow-up. Lab Data Attestation: I reviewed the patient's lab results. Lab results narrative: Urinalysis shows 150 occult blood. Negative nitrates. 5-10 reds. 25-50 white cells. 5-10 epithelial cells and 1+ bacteria. A culture will be sent. CBC shows white count 1.8. H&H 11 and 32. Platelets 214. Electrolytes sodium 133 potassium 3.2. Gap of 5. Normal BUN and creatinine of 6 and 0.6. Glucose 91. Lactic acid 0.9. Influenza and COVID are both negative. Urine gonorrhea test was positive. Labs: Laboratory Results - last 24 hr 08/01/21 08/01/21 08/01/21 16:40 17:50 17:50 WBC 11.8 H RBC 3.96 L Hgb 11.1 L Hct 32.4 L MCV 81.8 MCH 28.0 MCHC 34.3 RDW Std Deviation 41.6 RDW Coeff of Leoncio 13.9 Plt Count 214 MPV 9.4 Immature Gran % (Auto) 0.300 Neut % (Auto) 71.8 H Lymph % (Auto) 13.9 L [place] % (Auto) 13.5 H Eos % (Auto) 0.2 Baso % (Auto) 0.3 Absolute Neuts (auto) 8.4 H Absolute Lymphs (auto) 1.63 Nucleated RBC % 0 Differential Comment SEE COMMENT Diff Path Review May foll Platelet Estimate ADEQUATE RBC Morphology NORM C+C Anisocytosis RARE Microcytosis RARE Sodium 133 L Potassium 3.2 L Chloride 102 Carbon Dioxide 26.0 Anion Gap 5 BUN 6 L Creatinine 0.67 Estim Creat Clear Calc 96.22 Est GFR (MDRD) Af Amer 132 Est GFR (MDRD) Non-Af 109 BUN/Creatinine Ratio 9.0 L Glucose 91 Lactic Acid Calcium 8.0 L Urine Color Yellow Urine Clarity Sl Cloudy Urine pH 6.0 Ur Specific [place] 1.010 Urine Protein 100 H Urine Glucose (UA) Normal Urine Ketones Negative Urine Occult Blood 150 H Urine Nitrite Negative Urine Bilirubin Negative Urine Urobilinogen Normal Ur Leukocyte Esterase 500 H Urine RBC 5-10 SEEN Urine WBC 25-50 SEEN Ur Squamous Epith Cells 5-10 SEEN Urine Bacteria 1+ Urine Mucus 0 SEEN Urine Trichomonas 0-5 SEEN 08/01/21 17:50 WBC RBC Hgb Hct MCV MCH MCHC RDW Std Deviation RDW Coeff of Leoncio Plt Count MPV Immature Gran % (Auto) Neut % (Auto) Lymph % (Auto) [place] % (Auto) Eos % (Auto) Baso % (Auto) Absolute Neuts (auto) Absolute Lymphs (auto) Nucleated RBC % Differential Comment Diff Path Review Platelet Estimate RBC Morphology Anisocytosis Microcytosis Sodium Potassium Chloride Carbon Dioxide Anion Gap BUN Creatinine Estim Creat Clear Calc Est GFR (MDRD) Af Amer Est GFR (MDRD) Non-Af BUN/Creatinine Ratio Glucose Lactic Acid 0.9 Calcium Urine Color Urine Clarity Urine pH Ur Specific [place] Urine Protein Urine Glucose (UA) Urine Ketones Urine Occult Blood Urine Nitrite Urine Bilirubin Urine Urobilinogen Ur Leukocyte Esterase Urine RBC Urine WBC Ur Squamous Epith Cells Urine Bacteria Urine Mucus Urine Trichomonas Radiography Diagnostic Testing: Clinical Impression(s) from Imaging Studies Chest X-Ray 08/01/21 18:07 IMPRESSION: No acute radiographic abnormalities. Electronically Signed: Yuriy Seo MD at 18:30 EDT , Chest x-ray shows no acute abnormality. Portable, single view interpreted by myself and radiologist. Normal cardiac silhouette and mediastinum. Discharge Plan Triage Chief Complaint: Back ED Provider: Clifton Lee Dx/Rx/DC Orders Clinical Impression: Pyelonephritis, Chlamydia Instructions: Chlamydia Trachomatis (Urine), ED Pyelonephritis, Female (Adult) Prescriptions: New cephalexin 500 mg capsule 500 mg PO Q6 Qty: 40 0RF Primary Care Provider: Care Physician,No Primary Referrals: Daniel Santiago MD [STAFF PHYSICIAN] - As soon as possible Care Physician,No Primary [Primary Care Provider] - Activity Restrictions/Additional Instructions: Plenty of fluids and rest. Motrin and Tylenol for pain and fever. Follow-up with a doctor within the next week to ensure you are improving. Return to the emergency department if you are feeling worse. You have a urinary tract infection that is most likely in your kidneys called pyelonephritis. That will be treated with antibiotic Keflex 1 pill 4 times a day for 10 days. You were treated for gonorrhea and chlamydia that chlamydia test was positive with the antibiotics we gave you tonight which were Rocephin and Zithromax. All sexual partners to be checked. Disposition Disposition: Home, Self Care
[2021-08-01 17:48] VITALS: BP 101/67; PULSE 87; RESP 16; TEMP 36.9; O2SAT 100
[2021-08-01 17:53] VITALS: TEMP 37.7
[2021-08-01] MEDS: 0.9% Normal Saline 1,000 ML 1000 ML IV (17:54)
[2021-08-01] MEDS: Ketorolac 30 MG/ML Syringe IV (17:54)
[2021-08-01 17:59] LABS: Absolute Lymphocyte Count 1.63 X10^3/uL (0.83-4.51); Absolute Neutrophil Count 8.4 X10^3/uL (2.0-7.7); Basophil# 0.04 X10^3/uL; Basophil% 0.3 % (0-1); Eosinophil# 0.02 X10^3/uL; Eosinophils% 0.2 % (0-5); Hematocrit 32.4 % (37-47); Hemoglobin 11.1 g/dL (12.0-15.0); Lymphocyte # 1.63 X10^3/ul (0.83-4.51); Lymphocyte % 13.9 % (19-41); Mean Corp Hgb Conc 34.3 g/dL (32-36); Mean Corpuscular Volume 81.8 fL (81-99); Mean Platelet Vol. 9.4 fl (6.2-12.0); Monocyte# 1.59 X10^3/uL; Monocyte% 13.5 % (0-10); NRBC Flagged by Analyzer 0 % (0-5); Neutrophil # 8.43 X10^3/uL (2.7-7.7); Neutrophil % 71.8 % (47-70); POSITIVE DIFFERENTIAL YES; Platelet Count 214 K/mm3 (150-450); RBC Distribution Width CV 13.9 % (11.6-14.6); RBC Distribution Width SD 41.6 fl (35.1-43.9); Red Blood Count 3.96 M/mm3 (4.2-5.4); White Blood Count 11.8 K/mm3 (4.4-11.0)
[2021-08-01 18:01] LABS: Differential Indicated SCAN CRITERIA MET
--- NOTE | 2021-08-01 18:07 | RAD_ITS ---
INDICATION: fever EXAMINATION/TECHNIQUE: X-RAY - XR Chest 1 View COMPARISON: None. FINDINGS: The lungs are clear. The cardiomediastinal silhouette is unremarkable. No pleural effusion or pneumothorax. No acute osseous abnormalities. RAD/Chest 1 View (Portable) IMPRESSION: No acute radiographic abnormalities. Electronically Signed: Yuriy Seo MD at 18:30 EDT ,
[2021-08-01 18:17] LABS: Anisocytosis RARE; Platelet Estimate ADEQUATE (ADEQ); Red Cell Morphology NORM C+C NORMAL (NORM C&C)
[2021-08-01 18:20] LABS: Anion Gap 5 (5-15); BUN 6 mg/dL (7-18); Chloride 102 mmol/L (98-107); Creatinine, Serum 0.67 mg/dL (0.55-1.02); EST Glomerular Filtration Rate 109 mL/min (>60); Est Glom Filt Rate - Afr Amer 132 mL/min (>60); Estimated Creatinine Clearance 96.22 ml/min; Glucose 91 mg/dL (74-106); Potassium 3.2 mmol/L (3.5-5.1); Sodium Level 133 mmol/L (136-145)
[2021-08-01 18:22] LABS: Lactic Acid 0.9 mmol/L (0.4-1.9); Microcytosis RARE
[2021-08-01 19:48] VITALS: BP 105/66; PULSE 67; RESP 18; TEMP 36.6; O2SAT 99
[2021-08-01 19:58] LABS: Chlamydia Trachomatis by PCR Negative (Negative); Neisserai gonorrhoeae by PCR Positive (Negative); Probe Check PASS
[2021-08-01 20:00] VITALS: BP 101/60; PULSE 65; RESP 18; TEMP 36.7; O2SAT 99
--- NOTE | 2021-08-01 20:51 | ED.RN ---
PT STATES SHE DOES NOT HAVE TIME AND WANTED TO LEAVE BEFORE RECEIVING HER ANTIBIOTICS.
--- NOTE | 2021-08-01 20:55 | ED.RN ---
Dr. Lee made aware of patients decision to leave.
[2021-08-04 13:30] LABS: Pathologist Review Reviewed
== END 2021-08-01 20:52 | disposition home or self-care (01) ==
PROVIDERS: Emergency Provider Emergency Medicine; Visit Provider Emergency Medicine
DX: N12 Tubulo-interstitial nephritis, not specified as acute or chronic (principal); A56.00 Chlamydial infection of lower genitourinary tract, unspecified; F17.210 Nicotine dependence, cigarettes, uncomplicated
CPT/HCPCS: 71045; 80048; 81001; 83605; 85025; 87077; 87086; 87088; 87186; 87428; 87491; 87591; 96361; 96374; 99283; J7030; A4216